=== PATIENT | male | born 1950 | race Caucasian/White ===

== ENCOUNTER 2020-12-19 20:15 | Emergency (ER) | payer OTHER ==
[~2020-12-19] VITALS: Ht 170.2 cm; Wt 65.9 kg
[2020-12-19 20:17] VITALS: BP 131/66
--- NOTE | 2020-12-19 21:05 | NUR ---
Pt resting in bed watching TV, side rails up x2, connected to BP and O2 monitors, VSS
--- NOTE | 2020-12-19 22:05 | NUR ---
Pt resting comfortably in bed with eyes closed, even and symmetrical chest rise, VSS, NADN
--- NOTE | 2020-12-19 23:04 | NUR ---
Pt resting comfortably in bed with eyes closed, even and symmetrical chest rise, VSS, NADN, WCTM
== END 2020-12-20 00:56 | disposition home or self-care (01) ==
LOC: ED 20:37
DX: F10.120 Alcohol abuse with intoxication, uncomplicated (principal); Y90.0 Blood alcohol level of less than 20 mg/100 ml
CPT/HCPCS: 99283

== ENCOUNTER 2021-04-14 17:38 | Emergency (ER) | payer OTHER ==
[~2021-04-14] VITALS: Ht 170.2 cm; Wt 63.6 kg
--- NOTE | 2021-04-14 17:43 | NUR ---
PER EMS PT C/O N/V AT THE CASINO, CHOKED ON IT AND GOT SCARED. PT ON SOFT FOOD DIET DUE TO ESOPHAGEAL VARICES. VS STABLE PER EMS. NO INTERVENTIONS BY EMS.
[2021-04-14 17:47] VITALS: BP 107/41
[2021-04-14 18:31] LABS: BASOPHILS % (AUTO) 1 % (0-1); EOSINOPHILS % (AUTO) 1 % (1-7); LYMPHOCYTES % (AUTO) 15 % (22-44); MEAN CORPUSCULAR HEMOGLOBIN 34.6 pg (27.5-34.5); MEAN CORPUSCULAR HGB CONC 33.9 g/dL (33.2-36.2); MEAN PLATELET VOLUME 8.4 fL (7.4-10.4); MONOCYTES % (AUTO) 8 % (2-9); NEUTROPHILS % (AUTO) 75 % (42-75); PLATELET COUNT 206 x10^3/uL (130-400); RED BLOOD COUNT 3.62 x10^6/uL (4.38-5.82); RED CELL DISTRIBUTION WIDTH 15.2 % (9.4-14.8)
[2021-04-14 18:44] LABS: CHLORIDE 97 mmol/L (98-107)
[2021-04-14 19:04] LABS: ALANINE AMINOTRANSFERASE 23 U/L (12-78); ALBUMIN 3.4 g/dL (3.4-5.0); ALKALINE PHOSPHATASE 67 U/L (45-117); ANION GAP 14 mmol/L (5-15); BILIRUBIN,TOTAL 0.6 mg/dL (0.2-1.0); CALCIUM 8.8 mg/dL (8.5-10.1); CREATININE 1.18 mg/dL (0.7-1.3); TOTAL PROTEIN 7.8 g/dL (6.4-8.2)
--- NOTE | 2021-04-14 21:35 | NUR ---
PT TO ROOM AT THIS TIME, SPEAKING IN FULL SENTENCES, NADN RESP EVEN UNLABORED.
--- NOTE | 2021-04-14 22:49 | NUR ---
Patient/Caregiver given discharge instructions and they have confirmed that they understand the instructions.
== END 2021-04-14 22:51 | disposition home or self-care (01) ==
LOC: ED 21:45
DX: K20.90 Esophagitis, unspecified without bleeding (principal); K44.9 Diaphragmatic hernia without obstruction or gangrene; I10 Essential (primary) hypertension
CPT/HCPCS: 36415; 74220; 80053; 83690; 85025; 99283; 99284